=== PATIENT | male | born 1960 | race Caucasian/White ===

== ENCOUNTER 2017-08-06 08:56 | Inpatient (IN) | payer OTHER ==
[~2017-08-06] VITALS: Ht 185.4 cm; Wt 93.6 kg
[~2017-08-06 08:56] MED LIST: BUPIVACAINE/PF 0.5% ONE; CHOL100012 PO; CYAN10005 PO; MULT1TAB13 PO; OMEG500C3 PO; OXYC5CAP2 PO; UBID100C41 PO
[2017-08-06] MEDS ORDERED: LACTATED RINGERS 1,000 ML IV SCH ×2 (09:27→13:06)
[2017-08-06 09:35] VITALS: BP 127/86
[2017-08-06 10:11] LABS: HEMATOCRIT 48.8 % (39.2-51.8); HEMOGLOBIN 16.7 g/dL (13.7-18.0); WHITE BLOOD COUNT 4.7 x10^3/uL (3.4-10)
[2017-08-06 10:24] LABS: ASPARTATE AMINO TRANSFERASE 22 U/L (15-37); BLOOD UREA NITROGEN 14 mg/dL (7-18)
[2017-08-06] MEDS ORDERED: FENTANYL PF 100 MCG/2ML ONE ×5 (11:18→13:55)
[2017-08-06] MEDS ORDERED: MIDAZOLAM 1 MG/ML, 2ML ONE (11:18)
[2017-08-06] MEDS ORDERED: PROPOFOL 10 MG/ML, 20ML ONE (11:19)
[2017-08-06] MEDS ORDERED: NEOSTIGMINE 1 MG/ML, 10ML ONE (11:20)
[2017-08-06] MEDS ORDERED: ROCURONIUM 10 MG/ML,10ML ONE (11:20)
[2017-08-06] MEDS ORDERED: CEFAZOLIN 1,000 MG ONE ×2 (11:21)
[2017-08-06] MEDS ORDERED: SODIUM CHLORIDE 0.9% PF 10ML ONE (11:21)
[2017-08-06] MEDS ORDERED: GLYCOPYRROLATE 0.4 MG/2 ML, 2ML ONE (11:21)
[2017-08-06] MEDS ORDERED: LABETALOL 5MG/ML, 20ML ONE (11:25)
[2017-08-06] MEDS ORDERED: MEPERIDINE/PF 25MG/0.5ML IVPush PRN (12:00)
[2017-08-06] MEDS ORDERED: OXYcodone 5 MG/5 ML ORAL.SOL UDC PO PRN (12:00)
[2017-08-06] MEDS ORDERED: ACETAMINOPHEN 325 MG TABLET PO PRN ×2 (12:00→13:30)
[2017-08-06] MEDS ORDERED: PROMETHAZINE 25 MG/ML, 1ML IV PRN (12:00)
[2017-08-06] MEDS ORDERED: ALBUTEROL SULFATE 2.5 MG/3 ML NPPB PRN (12:00)
[2017-08-06] MEDS ORDERED: hydrALAzine 20 MG/ML, 1ML IV PRN (12:00)
[2017-08-06] MEDS ORDERED: LABETALOL 5MG/ML, 20ML IV PRN (12:00)
[2017-08-06] MEDS ORDERED: ONDANSETRON 2MG/ML, 2ML IVPush PRN ×2 (12:00→13:30)
[2017-08-06] MEDS ORDERED: ACETAMINOPHEN 650 MG/20.3 ML UDC ONE (13:10)
[2017-08-06] MEDS ORDERED: HYDROmorphone 2 MG/ML, 1ML ONE (13:10)
[2017-08-06] MEDS ORDERED: OXYcodone 5 MG/5 ML ORAL.SOL UDC ONE (13:11)
[2017-08-06] MEDS: FENTANYL PF 100 MCG/2ML IV PRN ×5 (13:12→14:10)
[2017-08-06] MEDS: HYDROmorphone 1 MG/ML, 1ML IV PRN ×4 (13:13→13:46)
[2017-08-06] MEDS ORDERED: ACETAMINOPHEN 650 MG SUPP PR PRN (13:30)
[2017-08-06] MEDS ORDERED: ENALAPRILAT 1.25 MG/ML, 2ML IVPush PRN (13:30)
[2017-08-06] MEDS ORDERED: DIPHENHYDRAMINE 50 MG/ML, 1ML IVPush PRN (13:30)
[2017-08-06] MEDS ORDERED: DIPHENHYDRAMINE 25 MG CAPSULE PO PRN (13:30)
[2017-08-06] MEDS ORDERED: LORazepam 1MG TABLET PO PRN (13:30)
[2017-08-06] MEDS ORDERED: hydrALAzine 20 MG/ML, 1ML IVPush PRN (13:30)
[2017-08-06] MEDS ORDERED: LORazepam 2 MG/ML, 1ML ONE ×2 (13:56→13:58)
[2017-08-06] MEDS: LORazepam 2 MG/ML, 1ML IVPush PRN (14:03)
[2017-08-06] MEDS: morphine SULFATE 10 MG/ML, 1ML IVPush PRN ×3 (15:10→21:02)
[2017-08-06] MEDS: FAMOTIDINE 20 MG/2 ML IVPush SCH (17:57)
[2017-08-06] MEDS: HYDROcodone/APAP 5/325 TABLET PO PRN ×2 (18:02→22:05)
[2017-08-06 20:06] VITALS: BP 114/81
[2017-08-06] MEDS: FAMOTIDINE 20 MG TABLET PO SCH (20:58)
[2017-08-06 23:12] VITALS: BP 135/85
[2017-08-07] MEDS: HYDROcodone/APAP 5/325 TABLET PO PRN ×3 (02:37→10:37)
[2017-08-07 02:53] VITALS: BP 118/75
[2017-08-07] MEDS: LORazepam 2 MG/ML, 1ML IVPush PRN (02:57)
[2017-08-07] MEDS: morphine SULFATE 10 MG/ML, 1ML IVPush PRN ×2 (03:46→08:28)
[2017-08-07 05:24] LABS: BLOOD UREA NITROGEN 15 mg/dL (7-18)
[2017-08-07] MEDS: FAMOTIDINE 20 MG/2 ML IVPush SCH (05:34)
[2017-08-07 05:36] LABS: HEMATOCRIT 43.2 % (39.2-51.8); HEMOGLOBIN 14.7 g/dL (13.7-18.0)
[2017-08-07] MEDS: FAMOTIDINE 20 MG TABLET PO SCH (08:28)
[2017-08-07] MEDS ORDERED: ENOXAPARIN 40 MG/0.4 ML SQ SCH (09:00)
[2017-08-07 09:15] VITALS: BP 129/67
[2017-08-07] MEDS ORDERED: HYDR-3240 PO (10:48)
== END 2017-08-07 10:58 | disposition home or self-care (01) | DRG 168 ==
LOC: ORIP 08:56 → 4NOR 14:56 → DCLOUNGE 08-07 10:46
PROVIDERS: ADMIT Thoracic Surgery (Cardiothoracic Vascular Surgery); ATTEND Thoracic Surgery (Cardiothoracic Vascular Surgery)
PROC: 0BBJ4ZX Excision of Left Lower Lung Lobe, Percutaneous Endoscopic Approach, Diagnostic (ICD-10-PCS; principal; 2017-08-06 12:00)
DX: C78.02 Secondary malignant neoplasm of left lung (principal); Z85.528 Personal history of other malignant neoplasm of kidney; Z90.5 Acquired absence of kidney
CPT/HCPCS: 36415; 71010; 80048; 80053; 85025; 88309; C1729; J0690; J1170; J1650; J2250; J2704; J2710; J3010; J3490; J2060; J2270; J7120